=== PATIENT | male | born 1985 | race African-American/Black ===

== ENCOUNTER 2020-02-05 09:44 | Outpatient (CLI) | payer OTHER ==
--- NOTE | 2020-02-05 10:57 | ER [facility] ASSESSMENT REPORT ---
Intake - In the Last 14 days Have you traveled outside [place]?: No Have you been in close contact with someone CONFIRMED: No Worked in Healthcare?: No - Symptoms Subjective Fever([place] feverish): No Chills: Yes Muscule Aches: No Runny Nose: No Sore Throat: No Cough (New or worsening chronic cough): No Shortness of breath: No Nausea or Vomiting: No Headache: No Abdominal Pain: No - Do you have any of the following Chronic lung disease: Asthma or emphysema or COPD: No Cystic Fibrosis: No Diabetes: No High Blood Pressure: No Cardiovascular Disease: No Chronic Kidney Disease: No Chronic Liver Disease: No Chronic blood disorder like Sickle Cell Disease: No Weak immune system due to disease or medication: No Neurologic condition that limits movement: No Developmental delay - Moderate to Severe: No Recent (within past 2 weeks) or current : No Morbid Obesity (>100 pounds over ideal weight): No - Objective Vital Signs: 5'10" 195 lb Temperature: 98.3 F Pulse Rate: 82 Respiratory Rate: 16 Blood Pressure: 120/71 O2 Sat by Pulse Oximetry: 95 Objective: Given above, testing performed: covid only General - General Chief Complaint: Eye Problem Stated Complaint: [facility] Time Seen by Provider: 02/05/20 10:45 Primary Care Provider: SHWETA DYE MD [Primary Care Provider] - Follow up as needed - [facility] Notes: 34-year-old male presents to [facility] clinic for COVID-19 testing. Patient has no significant medical history and no known contact with COVID-19 positive individual. Patient was sent over by PCP after receiving diagnosis of pinkeye for COVID-19 testing. Currently patient only complains of mild chills, left eye discharge, left eye itchiness. Patient is denying any fevers, muscle aches, rhinorrhea, sore throat, cough, shortness of breath, headache, nausea, vomiting, abdominal pain or diarrhea. Patient did just start antibiotics for his pinkeye that were prescribed by PCP. - Related Data Allergies/Adverse Reactions: No Known Allergies Allergy (Unverified 05/09/16 13:15) Home Medications: eye antibiotic Past Medical History - General Information source: Patient - Social History Smoking Status: Never Smoker Family History: Reviewed & Not Pertinent - Medical History Medical History: Negative - Past Medical History Cardiac Medical History: Reports: None Pulmonary Medical History: Reports: None EENT Medical History: Reports: None, Eyes Other: conjunctivitis Neurological Medical History: Reports: None Endocrine Medical History: Reports: None Renal/ Medical History: Reports: None Malignancy Medical History: Reports None GI Medical History: Reports: None Musculoskeletal Medical History: Reports None Skin Medical History: Reports None Psychiatric Medical History: Reports: None Traumatic Medical History: Reports: None Infectious Medical History: Reports: None Past Surgical History: Reports: Hx Orthopedic Surgery - left wrist Physical Exam - General General appearance: Appears well, Alert In distress: None Notes: PHYSICAL EXAMINATION: GENERAL: Well-appearing and in no acute distress. HEAD: Atraumatic, normocephalic. ENT: nares patent. Moist mucous membranes. NECK: Normal range of motion, supple without lymphadenopathy LUNGS: CTAB and equal. No wheezes rales or rhonchi. HEART: Regular rate and rhythm without murmurs ABDOMEN: Soft, nontender, normal bowel sounds, no guarding. EXTREMITIES: Normal range of motion, no pitting edema. No cyanosis. NEUROLOGICAL: Cranial nerves grossly intact. Normal speech. PSYCH: Normal mood, normal affect. SKIN: Warm, Dry, normal turgor, no rashes or lesions noted - HEENT Eyes: Periorbital edema - L eye Conjunctiva: Injected - L eye, Purulent discharge Cornea: Normal Extraocular movements intact: Yes Eyelashes: Matted - L eye Pupils: PERRL Patient Education/Counseling Counseling/Education: Patient presents with chills and left eye conjunctivitis for COVID-19 testing. Patient does not have emergency worrying symptoms such as difficulty breathing, shortness of breath, chest pain, pressure, confusion or cyanosis. Patient appears suitable for discharge as vital signs are stable and patient is nontoxic in appearance. Good return precautions have been discussed with patient, patient verbalized understanding and is agreeable with discharge plan of care at this time. Guidance for worsening S/SX: As a person under investigation for Covid 19, the [facility] and Human Services, division of public health advises you to adhere to the following guidance until your test results are reported to you. If your test result is positive, you will receive additional information from your provider and your local health department at that time. Remain at home until you are cleared by the health provider or public health authorities. Keep a log of visitors to your home, notify any visitors to your home of your isolation status. If you plan to move to a new address or leave the county, notify the local health department in your County. Call your doctor or seek care if you have an urgent medical need. Before seeking medical care, call ahead to get instructions from the provider before arriving at the medical office clinic or hospital. Notify them that you are being tested for the virus that causes Covid 19 so that arrangements can be made, as necessary, to prevent transmission to others in the healthcare setting. Next, notify the local health department in your county. If a medical emergency arises and you need to call 911, inform the first responders that you are being tested for the virus that causes Covid 19. Next, notify the local health department in your county. [facility] Discharge - Discharge Clinical Impression: Encounter for screening laboratory testing for COVID-19 virus Conjunctivitis Qualifiers: Acute conjunctivitis type: unspecified Laterality: left Condition: Good Disposition: Home; Selfcare
[2020-02-05 10:58] VITALS: BP 120/71
== END 2020-02-05 09:59 | disposition home or self-care (01) ==
LOC: ER 09:44 → EDRDC 09:44 → ER 09:59 → EDSTATUS 11:06
PROVIDERS: ATTEND Registered Nurse
DX: Z20.828 Contact with and (suspected) exposure to other viral communicable diseases (principal)
CPT/HCPCS: 87635; C9803

== ENCOUNTER → 2020-08-06 | Outpatient (CLI) | payer BC, OTHER ==
[2020-08-06 13:20] VITALS: BP 119/66
--- NOTE | 2020-08-06 13:20 | ER [facility] ASSESSMENT REPORT ---
Intake - In the Last 14 days Have you traveled outside [place]?: Yes --City/State: [place] Have you been in close contact with someone CONFIRMED: No Worked in Healthcare?: No - Symptoms Subjective Fever([place] feverish): No Chills: No Muscule Aches: No Runny Nose: No Sore Throat: No Cough (New or worsening chronic cough): No Shortness of breath: No Nausea or Vomiting: No Headache: No Abdominal Pain: No Diarrhea(3 or more loose stools in last 24 hours): No - Do you have any of the following Chronic lung disease: Asthma or emphysema or COPD: No Cystic Fibrosis: No Diabetes: No High Blood Pressure: No Cardiovascular Disease: No Chronic Kidney Disease: No Chronic Liver Disease: No Chronic blood disorder like Sickle Cell Disease: No Weak immune system due to disease or medication: No Neurologic condition that limits movement: No Developmental delay - Moderate to Severe: No Recent (within past 2 weeks) or current : No Morbid Obesity (>100 pounds over ideal weight): No - Objective Temperature: 99.1 F Pulse Rate: 87 Respiratory Rate: 18 Blood Pressure: 119/66 O2 Sat by Pulse Oximetry: 96 Objective: Given above, testing performed: If Testing Performed: Test Specimen Type Sent to General - General Information source: Patient Notes: Patient presents to the [facility] for screening for coronavirus. Patient reports recent travel out of [facility]. - Related Data Allergies/Adverse Reactions: No Known Allergies Allergy (Unverified 05/09/16 13:15) Past Medical History - General Information source: Patient - Social History Family History: Reviewed & Not Pertinent - Medical History Medical History: Negative Past Surgical History: Reports: Hx Orthopedic Surgery - left wrist Physical Exam - Notes Notes: The patient was evaluated during the global Covid 19 pandemic, and that diagnosis was suspected/considered upon their initial presentation. Their evaluation and testing was consistent with current guidelines for patients who present with complaints or symptoms that may be related to Covid 19. Full physical exam could not be performed due to covid 19 isolation protocols. Constitutional: Nontoxic appearance, no acute distress Eyes: Nonicteric sclera clear Cardiovascular: Heart rate and rhythm regular Respiratory: Breath sounds clear bilaterally, nonlabored breathing, no use of accessory muscles, no tachypnea Gastrointestinal: Abdomen not distended Muculoskeletal: Moves all extremities well Skin: Normal color Neuro: Awake alert oriented, normal speech Psych: Normal mood and affect Diagnostic Results Laboratory Results: Patient presents with concerns about exposure worrisome for possible Covid 19. Patient does not have emergency worrying symptoms such as difficulty breathing, shortness of breath, chest pain, pressure, confusion or cyanosis. Patient appears suitable for discharge as they are not of an advanced age, do not have any chronic medical conditions such as diabetes, CAD, immune deficiency, chronic lung disease or chronic kidney disease. Patient's vital signs are stable and patient is nontoxic in appearance. Good return precautions have been discussed with patient, patient verbalized understanding and is agreeable with discharge plan of care at this time. Patient Education/Counseling Counseling/Education: Patient was provided with discharge information including: As a person under investigation for Covid 19, the [place] department of Health and Human Services, division of public health advises you to adhere to the following guidance until your test results are reported to you. If your test result is positive, you will receive additional information from your provider and your local health department at that time. Remain at home until you are cleared by the health provider or public health authorities. Keep a log of visitors to your home, notify any visitors to your home of your isolation status. If you plan to move to a new address or leave the [facility], notify the local [facility] department in your [place]. Call your doctor or seek care if you have an urgent medical need. Before seeking medical care, call ahead to get instructions from the provider before arriving at the medical office clinic or hospital. Notify them that you are being tested for the virus that causes Covid 19 so that arrangements can be made, as necessary, to prevent transmission to others in the healthcare setting. Next, notify the local health department in your county. If a medical emergency arises and you need to call 911, inform the first responders that you are being tested for the virus that causes Covid 19. Next, notify the [facility] health department in your county. R[facility] Discharge - Discharge Clinical Impression: Encounter for screening laboratory testing for COVID-19 virus Condition: Stable Disposition: Home; Selfcare
== END ==
LOC: RDC 12:40
PROVIDERS: ATTEND Nurse Practitioner Family
DX: Z20.822 Contact with and (suspected) exposure to COVID-19 (principal)
CPT/HCPCS: 87635; 99211 ×2; C9803